=== PATIENT | male | born 2000 | race Caucasian/White ===

== ENCOUNTER 2025-02-26 08:10 | Emergency (ER) | payer MEDICAID ==
[~2025-02-26] VITALS: Ht 167.6 cm; Wt 78.5 kg
[2025-02-26 08:11] VITALS: TEMP 98.6
--- NOTE | 2025-02-26 09:04 | Physician Documentation ---
History of Present Illness ~ Chief Complaint: Numbness Stated Complaint: NUMBNESS Time Seen by MD: 08:39 Mode of Arrival: EMS HPI This is a 24-year-old male who was brought today from [facility] due to complaints of right-sided numbness. On exam, he notes that he dropped a heavy object on the right foot within the last couple of days and that the numbness to this area has only been present since that injury. In regards to the slight numbness reported in the right hand. He states that this is chronic ever since a brain surgery. His neurologic exam is intact, he denies any recent sickness, chills, fever, nausea, vomiting, chest pain, shortness of breath. Review of Systems ROS As stated above in the HPI, otherwise all systems are reviewed and negative. Physical Exam Vital Signs: Temperature: 98.6, Source: Oral, Heart Rate: 54, Respiratory Rate: 16, BP: 119/65, Pulse Oximetry: 100, Weight: 78.450 Physical Exam General: Alert, no apparent distress. HEENT: PERRL, EOMI, no injection, moist mucous membranes. Neck: Full range of motion. Respiratory: Lungs clear, no respiratory distress. Chest: No accessory muscle use. Cardiovascular: Regular rate and rhythm, no murmurs. Gastrointestinal: Soft, nontender, nondistended. Bowels sounds present. Extremities: Normal range of motion, no deformity. Neurologic: Oriented x4. Cranial nerves are intact to examination. No facial droop. No pronator drift. Psychiatric: Normal mood and affect. Skin: Normal color, warm and dry. No edema, no ecchymosis. Progress Results/Orders Results/Orders Vital Signs 02/26/25 02/26/25 08:11 08:33 Temp 98.6 Pulse 54 Resp 14 16 B/P (MAP) 119/65 Pulse Ox 100 Medical Decision Making Differential Dx:Considerations: Include: Alcohol abuse, Anxiety, Bipolar disorder, Conversion disorder, Depression, Encephaloathy, Homicidal, Panic disorder, Personality disorder, Schizophrenia, Substance abuse, Suicidal Differential Diagnosis This 24-year-old male with a history of methamphetamine abuse who was placed at [facility] under 5150 hold for being gravely disabled unable to care for self. 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 He had a normal neurologic exam. Case discussed with the attending ED MD Avendaño who affirms plan to return patient to [facility] without further intervention in the ER. Departure Time of Disposition: 09:02 Disposition: 01 HOME / SELF CARE / HOMELESS Impression: Primary Impression: Numbness Condition: Stable Discharge Instructions: Weakness Additional Instructions: Normal neurologic exam. Cleared to return to [facility] (Medically cleared). Return if worse, otherwise followup with primary care. Referrals: NO PRIMARY CARE PROVIDER (PCP) Education Educated: Patient Educated regarding: diagnosis, treatment, need for follow up Signature Scribe Signature: x Attestation: The note accurately reflects work and decisions made by me.Deya Montgomery NP 02/26/25 09:19 DEYA KEN NP Feb 26, 2025 09:04
[2025-02-26 10:14] VITALS: BP 125/74; PULSE 76; RESP 16; O2SAT 99
== END 2025-02-26 10:19 | disposition home or self-care (01) ==
LOC: ER 08:11
DX: R20.0 Anesthesia of skin (principal)
CPT/HCPCS: 99283